=== PATIENT | male | born 1990 | race Caucasian/White ===

== ENCOUNTER 2018-07-06 17:33 | Emergency (ER) | payer SELFPAY ==
[2018-07-06 17:47] VITALS: BP 101/55
--- NOTE | 2018-07-06 17:52 | ED Physician Documentation ---
Ear Complaints - HISTORIAN Historian: patient - HPI Stated Complaint: Foreign object L ear Chief Complaint: Ear Complaints Additional Information: Hiccuped while in the shower and has cotton portion of q tip in left ear. Occurred just prior to arrival in ER - ROS CONST: no problems - PAST HX Past History: none Allergies/Adverse Reactions: Allergies Allergy/AdvReac Type Severity Reaction Status Date / Time No Known Allergies Allergy Verified 07/06/18 17:46 Home Medications: Ambulatory Orders Medication Instructions Recorded NK 07/06/18 - SOCIAL HX Smoking History: cigarettes Alcohol Use: none Drug Use: none - FAMILY HX Family History: No - VITAL SIGNS Vital Signs: Vital Signs Temp Pulse Resp BP Pulse Ox 87 15 101/55 98 07/06/18 17:33 07/06/18 17:33 07/06/18 17:33 07/06/18 17:33 - REVIEWED ASSESSMENTS Nursing Assessment Reviewed: Yes Vitals Reviewed: Yes Procedures Progress: left ear flushed with 300 ml warm water - cotton like material seen leaving ear. pt notes pressure relieved. Ear Complaint Physical Exam - EXAM General Appearance: alert, mild distress, other (obese) Ear: auricle nml, bottle tester.canal nml, left, other (tortuous canal, unable to see FB) Mouth/Throat: lips nml, gums nml Head/Neck: atraumatic, neck nml inspection Resp/CVS: no resp. distress Skin: nml color, no skin rash Neuro/Psych: mood/affect nml Discharge Clincal Impression: Foreign body in left ear Qualifiers: Encounter type: initial encounter Qualified Code(s): T16.2XXA - Foreign body in left ear, initial encounter Referrals: Primary Doctor,No [Primary Care Provider] - 2 Days Condition: Good Disposition: 01 HOME, SELF-CARE Decision to Admit: NO Decision Time: 17:55
[2018-07-06] MEDS: IBUPROFEN 400 MG TABLET PO ONE (17:56)
== END 2018-07-06 17:56 | disposition home or self-care (01) ==
LOC: ED 17:33
DX: T16.2XXA Foreign body in left ear, initial encounter (principal); X58.XXXA Exposure to other specified factors, initial encounter; Y92.9 Unspecified place or not applicable; Y93.9 Activity, unspecified; Y99.9 Unspecified external cause status
CPT/HCPCS: 99282